=== PATIENT | female | born 1950 | race Caucasian/White ===

== ENCOUNTER 2021-11-10 22:00 | Emergency (ER) | payer MEDICAID, OTHER ==
[~2021-11-10] VITALS: Ht 167.6 cm; Wt 68.0 kg
[2021-11-10] MEDS ORDERED: IOHEXOL 350 MG/ML 100ML IJ ONE (23:01)
[2021-11-11 00:46] VITALS: BP 116/71
== END 2021-11-11 01:16 | disposition home or self-care (01) ==
LOC: EDBD 22:00 → ER 22:00
DX: S39.012A Strain of muscle, fascia and tendon of lower back, initial encounter (principal); F17.210 Nicotine dependence, cigarettes, uncomplicated; F12.10 Cannabis abuse, uncomplicated; S50.11XA Contusion of right forearm, initial encounter; V89.0XXA Person injured in unspecified motor-vehicle accident, nontraffic, initial encounter; Y93.89 Activity, other specified; Y92.89 Other specified places as the place of occurrence of the external cause; Y99.8 Other external cause status
CPT/HCPCS: 70450; 71260; 72125; 74177; 99285; Q9967